=== PATIENT | female | born 1960 | race Caucasian/White ===

== ENCOUNTER → 2016-07-25 | Outpatient (CLI) | payer OTHER | LOC: FIMAGING 10:18 | PROVIDERS: ATTEND Internal Medicine Hematology & Oncology | DX: Z12.31 Encounter for screening mammogram for malignant neoplasm of breast (principal); Z85.3 Personal history of malignant neoplasm of breast | CPT/HCPCS: G0204 ==

== ENCOUNTER → 2017-07-30 | Outpatient (CLI) | payer OTHER | LOC: FIMAGING 11:12 | PROVIDERS: ATTEND Internal Medicine Hematology & Oncology | DX: Z12.31 Encounter for screening mammogram for malignant neoplasm of breast (principal); Z85.3 Personal history of malignant neoplasm of breast ==

== ENCOUNTER → 2018-08-07 | Outpatient (CLI) | payer OTHER | LOC: FIMAGING 09:59 | PROVIDERS: ATTEND Internal Medicine Hematology & Oncology | DX: Z85.3 Personal history of malignant neoplasm of breast (principal); Z92.3 Personal history of irradiation; Z92.21 Personal history of antineoplastic chemotherapy ==